=== PATIENT | male | born 1970 | race Caucasian/White ===

== ENCOUNTER 2021-05-25 19:44 | Inpatient (IN) | payer BC ==
[~2021-05-25] VITALS: Ht 180.3 cm; Wt 136.1 kg
[2021-05-25 20:58] LABS: BUN/CREATININE RATIO 17 (0-10)
[2021-05-25 21:26] LABS: HEMOGLOBIN 13.9 gm/dl (14.0-17.5); RED BLOOD COUNT 4.37 M/UL (4.20-5.50)
[2021-05-26] MEDS ORDERED: BENICAR40 MG PO (00:39)
[2021-05-26] MEDS ORDERED: NORVASC10 MG PO (00:40)
--- NOTE | 2021-05-26 00:54 | NUR ---
NOTIFIED DR RIVERA OF PT'S BP 144/100. DR RIVERA DOESNT WANT TO RESUME PT'S BLOOD PRESSURE MEDS THAT HE TAKES AT HOME. WILL CONTINUE TO MONITOR.
--- NOTE | 2021-05-26 08:00 | NUR ---
MD AWARE OF VANCO TROUGH AND ORDERED TO GIVE AM DOSE. TROUGH 17
[2021-05-26 08:50] LABS: RED BLOOD COUNT 4.41 M/UL (4.20-5.50); WHITE BLOOD COUNT 6.7 K/UL (4.5-11.0)
[2021-05-26] MEDS ORDERED: ZINC50 M1 PO (11:10)
[2021-05-26] MEDS ORDERED: MULTIVITAMIN1 EACH PO (11:10)
[2021-05-26] MEDS ORDERED: VITAMIN B-12100 MCG PO (11:12)
[2021-05-26] MEDS ORDERED: VITAMIN C100 MG PO (11:13)
[2021-05-26] MEDS ORDERED: VITAMIN D325 MC6 PO (11:13)
--- NOTE | 2021-05-26 18:32 | NUR ---
DR RIDER CALLED PT B/P 166/100 NEW ORDERS RECEIVED,
[2021-05-27 06:17] LABS: HEMOGLOBIN 14.7 gm/dl (14.0-17.5); RED BLOOD COUNT 4.66 M/UL (4.20-5.50); WHITE BLOOD COUNT 5.1 K/UL (4.5-11.0)
[2021-05-27 06:53] LABS: BUN/CREATININE RATIO 17 (0-10)
[2021-05-27] MEDS ORDERED: GLUCOPHAGE 500500 MG PO (19:01)
[2021-05-27] MEDS ORDERED: NOVOLOG FL100 UNIT/1 INJ (19:01)
[2021-05-27] MEDS ORDERED: LANTUS SOL100 UNIT/1 SQ (19:01)
[2021-05-28 06:25] LABS: HEMOGLOBIN 14.3 gm/dl (14.0-17.5); RED BLOOD COUNT 4.52 M/UL (4.20-5.50); WHITE BLOOD COUNT 5.2 K/UL (4.5-11.0)
[2021-05-29 07:01] LABS: HEMOGLOBIN 14.1 gm/dl (14.0-17.5); RED BLOOD COUNT 4.51 M/UL (4.20-5.50)
[2021-05-29 07:02] LABS: WHITE BLOOD COUNT 6.9 K/UL (4.5-11.0)
--- NOTE | 2021-05-29 10:34 | NUR ---
PATIENT NOTED TO BE HYPOXIC WITH A SAT OF 85-86% ON 6LNC. PROVIDER MADE AWARE WITH NEW ORDERS GIVEN. PATIENT IS IN NO DISTRESS. STAT ABG ORDERED ALONG WITH A NEBULIZER.
[2021-05-30 05:51] LABS: HEMOGLOBIN 13.4 gm/dl (14.0-17.5); RED BLOOD COUNT 4.29 M/UL (4.20-5.50); WHITE BLOOD COUNT 6.5 K/UL (4.5-11.0)
[2021-05-31 07:35] LABS: HEMOGLOBIN 13.8 gm/dl (14.0-17.5); RED BLOOD COUNT 4.4 M/UL (4.20-5.50); WHITE BLOOD COUNT 7.3 K/UL (4.5-11.0)
[2021-06-01 08:04] LABS: HEMOGLOBIN 13.4 gm/dl (14.0-17.5); RED BLOOD COUNT 4.39 M/UL (4.20-5.50); WHITE BLOOD COUNT 6.5 K/UL (4.5-11.0)
[2021-06-01] MEDS ORDERED: BUDESONIDE0.5 MG/2 M NEB (14:35)
[2021-06-01] MEDS ORDERED: GLUCOPHAGE 500500 MG PO (14:35)
[2021-06-01] MEDS ORDERED: AUGMENTIN 875-1 EACH PO (14:35)
[2021-06-01] MEDS ORDERED: IPRAT-ALBUT 0.5-3 ML NEB (14:35)
[2021-06-01] MEDS ORDERED: DEXAMETHASONE2 MG PO (14:35)
[2021-06-01] MEDS ORDERED: LANTUS SOL100 UNIT/1 SQ (14:40)
[2021-06-01] MEDS ORDERED: METFORMIN HCL500 MG PO (14:40)
[2021-06-01] MEDS ORDERED: NOVOLOG100 UNIT/1 SC (14:40)
[2021-06-01] MEDS ORDERED: ELIQUIS 2.5 MG2.5 MG PO (14:52)
[2021-06-02] MEDS ORDERED: LANTUS SOL100 UNIT/1 SQ (09:32)
== END 2021-06-01 16:54 | disposition home health service (06) | DRG 177 ==
LOC: ER1 19:44 → MED SURG 4 21:56 → CDU 21:56 → MED SURG 4 05-26 00:25
PROVIDERS: Emergency Medicine; Internal Medicine; ADMIT Internal Medicine
PROC: 3E0333Z Introduction of Anti-inflammatory into Peripheral Vein, Percutaneous Approach (ICD-10-PCS; principal; 2021-05-25)
PROC: XW033E5 Introduction of Remdesivir Anti-infective into Peripheral Vein, Percutaneous Approach, New Technology Group 5 (ICD-10-PCS; 2021-05-25)
PROC: 5A09457 Assistance with Respiratory Ventilation, 24-96 Consecutive Hours, Continuous Positive Airway Pressure (ICD-10-PCS; 2021-05-26)
PROC: 5A0945A Assistance with Respiratory Ventilation, 24-96 Consecutive Hours, High Flow/Velocity Cannula (ICD-10-PCS; 2021-05-29)
DX: U07.1 COVID-19 (principal); J12.82 Pneumonia due to coronavirus disease 2019; J80 Acute respiratory distress syndrome; E66.2 Morbid (severe) obesity with alveolar hypoventilation; N17.9 Acute kidney failure, unspecified; Z68.41 Body mass index [BMI] 40.0-44.9, adult; I12.9 Hypertensive chronic kidney disease with stage 1 through stage 4 chronic kidney disease, or unspecified chronic kidney disease; E11.22 Type 2 diabetes mellitus with diabetic chronic kidney disease; N18.30 Chronic kidney disease, stage 3 unspecified; E11.65 Type 2 diabetes mellitus with hyperglycemia; F41.9 Anxiety disorder, unspecified; R00.0 Tachycardia, unspecified; E86.0 Dehydration; G47.33 Obstructive sleep apnea (adult) (pediatric); Z79.4 Long term (current) use of insulin; Z83.3 Family history of diabetes mellitus; Z87.891 Personal history of nicotine dependence
CPT/HCPCS: 36415; 36600; 71045; 80048; 80053; 82550; 82553; 82728; 82803; 82962; 83036; 83615; 83874; 84484; 85025; 85027; 85379; 86140; 93005; 94640; 94660; 94664; 94760; 96374; 97110-GP-CQ; 97116; 97116-GP-CQ; 97161; 97530-GP-CQ; 99285; J0360; J0696; J1100; J1650; J7030

== ENCOUNTER → 2021-06-29 | Outpatient (CLI) | payer BC ==
[~2021-06-29] MED LIST: AUGMENTIN 875-1 EACH PO; BENICAR40 MG PO; BUDESONIDE0.5 MG/2 M NEB; DEXAMETHASONE2 MG PO; ELIQUIS 2.5 MG2.5 MG PO; GLUCOPHAGE 500500 MG PO; IPRAT-ALBUT 0.5-3 ML NEB; LANTUS SOL100 UNIT/1 SQ; METFORMIN HCL500 MG PO; MULTIVITAMIN1 EACH PO; NORVASC10 MG PO; NOVOLOG FL100 UNIT/1 INJ; NOVOLOG100 UNIT/1 SC; VITAMIN B-12100 MCG PO; VITAMIN C100 MG PO; VITAMIN D325 MC6 PO; ZINC50 M1 PO
== END ==
LOC: HEART 5 14:02
DX: U07.1 COVID-19 (principal); J12.82 Pneumonia due to coronavirus disease 2019; J96.01 Acute respiratory failure with hypoxia
CPT/HCPCS: 71046; 94060; 94729

== ENCOUNTER → 2021-10-06 | Outpatient (CLI) | payer BC | LOC: EXRD 10:46 | DX: J45.909 Unspecified asthma, uncomplicated (principal); R09.02 Hypoxemia; J18.9 Pneumonia, unspecified organism | CPT/HCPCS: 71046; 94010; 94729 ==